=== PATIENT | female | born 1950 | race Caucasian/White ===

== ENCOUNTER 2021-10-04 18:50 | Inpatient (IN) | payer MEDICARE, OTHER ==
[~2021-10-04 18:50] MED LIST: Iopamidol-370 76% 500 ML 1 ML ONE
[2021-10-04 19:29] LABS: #Basophils 0.1 thou/uL (0.0-0.2); #Lymphocytes 2.2 thou/uL (1.20-3.40); #Monocytes 1.1 thou/uL (0.11-0.59); #Neutrophils 7.4 thou/uL (1.40-6.50); %Basophils 0.7 % (0.0-1.0); %Eosinophils 0.3 % (0.0-10.0); %Lymphocytes 20.4 % (21.0-51.0); %Monocytes 10.1 % (0.0-10.0); %Neutrophils 68.5 % (42.0-75.0); Hemoglobin 13.3 g/dL (12.0-16.0); Mean Corpuscular HGB CONC 32.7 g/dL (32.0-36.0); Mean Corpuscular Hemoglobin 30.1 pg (27.0-31.0); Mean Corpuscular Volume 92.2 fL (78.0-98.0); Mean Platelet Volume 8.9 fL (7.4-10.4); Platelet Count 288 thou/uL (130-400); RBC Distribution Width 12.8 % (11.5-14.5); White Blood Cell (WBC) Count 10.8 thou/uL (4.8-10.8)
[2021-10-04] MEDS ORDERED: Fentanyl 100 MCG/2 ML VIAL ONE (19:50)
[2021-10-04 20:10] LABS: Acetaminophen Less than 10.0 mcg/mL (10.0-30.0); Alcohol Less than 10 mg/dL (Less than 10); CK (CPK) 98 U/L (29-168); Salicylate Less than 8.0 mg/dL (15.0-30.0)
[2021-10-04] MEDS ORDERED: Dextrose 50% Abboject 50 ML SYRINGE SLOW IVP PRN (20:10)
[2021-10-04] MEDS ORDERED: Ondansetron ODT 4 MG TAB PO PRN (20:10)
[2021-10-04] MEDS ORDERED: Ondansetron PF 4 MG/2 ML Vial IVP PRN (20:10)
[2021-10-04] MEDS ORDERED: Dextrose 5% in Water 1,000 ML IV PRN (20:10)
[2021-10-04 20:22] LABS: Bilirubin Negative (Negative); Blood, Urine Negative (Negative); Clarity Clear (Clear); Glucose, Urine (Dipstick) Normal (Negative); Ketone, Urine Negative (Negative); Leukocyte Negative Leu/uL (Negative); Nitrite Negative (Negative); Protein, Urine (Dipstick) Negative (Neg-Trace); Specific Gravity, Urine 1.029 (1.002-1.036); Urobilinogen Normal mg/dL (Less than 2); pH, Urine 7.5 (5.0-9.0)
[2021-10-04 20:25] LABS: INR-International Normal Ratio 0.9; Prothrombin Time 12.7 sec (12.0-14.7)
[2021-10-04 20:26] LABS: PTT 22.4 sec (22.9-36.1)
[2021-10-04 20:30] LABS: Amphetamine Not Detected (NotDetected); Barbiturates Screen Not Detected (NotDetected); Benzodiazepine Screen Not Detected (NotDetected); Cocaine Metabolite Screen Not Detected (NotDetected); Methadone Not Detected (NotDetected); Methamphetamine Not Detected (NotDetected); Opiate Screen Not Detected (NotDetected); Oxycodone Screen Not Detected (NotDetected); Phencyclidine (PCP) Not Detected (NotDetected); THC/Cannabinoid Screen Not Detected (NotDetected); Tricyclic Screen Detected (NotDetected)
[2021-10-04 20:30] LABS: Albumin 3.9 g/dL (3.4-4.8)
[2021-10-04 20:31] LABS: Chloride 108 mmol/L (98-107); Potassium 3.7 mmol/L (3.5-5.1); Sodium 141 mmol/L (136-145)
[2021-10-04 20:32] LABS: Calcium 9.3 mg/dL (7.8-10.44)
[2021-10-04 20:33] LABS: Globulin 2.5 g/dL (2.4-3.5); Glucose 121 mg/dL (83-110); Protein, Total 6.4 g/dL (5.8-8.1)
[2021-10-04 20:34] LABS: Anion Gap 18 mmol/L (10-20); Bilirubin, Total 0.9 mg/dL (0.2-1.2); Carbon Dioxide 19 mmol/L (23-31)
[2021-10-04 20:35] LABS: Alkaline Phosphatase 78 U/L (40-110)
[2021-10-04 20:36] LABS: Calc. Creatinine Clearance 0 mL/min (70-130)
[2021-10-04 20:36] LABS: Actual Bicarbonate (HCO3v) 19 mEq/L (22-28); Analyzer IN Cardio ER; Base Excess -3.3 mEq/L (-2.0 to +3.0); Calcium, Ionized (venous) 1.14 mmol/L (1.16-1.32); Chloride (VBG) 106 mmol/L (98-106); Potassium (VBG) 3.44 mmol/L (3.70-5.30); Sodium 138.7 mmol/L (133-146); pH (venous) 7.48 (7.32-7.43)
[2021-10-04 20:37] LABS: BUN (Urea Nitrogen) 13 mg/dL (9.8-20.1)
[2021-10-04 20:38] LABS: ALT (SGPT) 21 U/L (8-55); AST (SGOT) 20 U/L (5-34)
[2021-10-04] MEDS: Labetalol HCl 100 MG/20 ML VIAL SLOW IVP PRN (21:51)
[2021-10-04] MEDS ORDERED: Thiamine HCl 200 MG/2 ML VIAL SLOW IVP SCH (22:00)
[2021-10-04 22:35] LABS: SARS-CoV-2 NAA Rapid Test Not Detected (NotDetected)
[2021-10-05] MEDS ORDERED: Acetaminophen 650 MG Suppository PR PRN (00:05)
[2021-10-05] MEDS ORDERED: traMADol HCl 50 MG TAB PO PRN (00:06)
[2021-10-05] MEDS: hydrALAZINE 20 MG/ML VIAL SLOW IVP PRN ×3 (00:09→16:19)
[2021-10-05] MEDS: Labetalol HCl 100 MG/20 ML VIAL SLOW IVP PRN ×6 (04:06→23:04)
[2021-10-05] MEDS ORDERED: Non-Formulary Item 1 EACH (Buspirone Hcl [Buspirone Hcl] 30 MG Tablet) PO PRN (08:33)
[2021-10-05] MEDS ORDERED: busPIRone HCl 10 MG TAB PO PRN ×2 (08:57→09:00)
[2021-10-05] MEDS ORDERED: Famotidine 20 MG TAB PO SCH (09:00)
[2021-10-05] MEDS ORDERED: Non-Formulary Item 1 EACH (Gabapentin [Neurontin] 600 MG Tablet) PO SCH (09:00)
[2021-10-05] MEDS ORDERED: Non-Formulary Item 1 EACH (Hydralazine Hcl [Hydralazine Hcl] 100 MG Tablet) PO SCH (09:00)
[2021-10-05 09:18] LABS: #Lymphocytes 1.5 thou/uL (1.20-3.40); #Monocytes 1.2 thou/uL (0.11-0.59); #Neutrophils 10.2 thou/uL (1.40-6.50); %Basophils 0.4 % (0.0-1.0); %Eosinophils 0.1 % (0.0-10.0); %Lymphocytes 11.3 % (21.0-51.0); %Monocytes 9.3 % (0.0-10.0); Hemoglobin 12.9 g/dL (12.0-16.0); Mean Corpuscular HGB CONC 32.8 g/dL (32.0-36.0); Mean Corpuscular Hemoglobin 29.8 pg (27.0-31.0); Mean Corpuscular Volume 90.9 fL (78.0-98.0); Mean Platelet Volume 8.8 fL (7.4-10.4); Platelet Count 271 thou/uL (130-400); RBC Distribution Width 12.7 % (11.5-14.5); Red Blood Cell (RBC) Count 4.32 mill/uL (4.20-5.40)
[2021-10-05] MEDS: Folic Acid 1 MG TAB PO SCH (09:29)
[2021-10-05] MEDS: Amlodipine 10 MG TAB PO SCH ×2 (09:29→15:55)
[2021-10-05] MEDS: Escitalopram Oxalate 10 mg Tablet PO SCH (09:29)
[2021-10-05] MEDS: Gabapentin 300 MG CAP PO SCH ×2 (09:30→20:56)
[2021-10-05] MEDS: hydrALAZINE 25 MG TAB PO SCH ×3 (09:32→20:55)
[2021-10-05 09:38] LABS: Anion Gap 16 mmol/L (10-20); BUN (Urea Nitrogen) 12 mg/dL (9.8-20.1); Calc. Creatinine Clearance 94 mL/min (70-130); Calcium 9.7 mg/dL (7.8-10.44); Carbon Dioxide 20 mmol/L (23-31); Chloride 108 mmol/L (98-107); Glucose 165 mg/dL (83-110); Magnesium 2.1 mg/dL (1.6-2.6); Potassium 3.2 mmol/L (3.5-5.1); Sodium 141 mmol/L (136-145)
[2021-10-05] MEDS ORDERED: Lorazepam 2 MG/ML VIAL SLOW IVP SCH (10:15)
[2021-10-05] MEDS: Lactated Ringer's 1,000 ML IV SCH ×2 (10:49→23:04)
[2021-10-05] MEDS ORDERED: Thiamine HCl 200 MG/2 ML VIAL SLOW IVP SCH (11:59)
[2021-10-05 12:00] LABS: Vitamin B12 398 pg/mL (211-911)
[2021-10-05 12:04] LABS: HIV (1/2) Antibody/Antigen Non-Reactive (NonReactive)
[2021-10-05] MEDS: Lorazepam 2 MG/ML VIAL SLOW IVP PRN ×3 (12:56→21:55)
[2021-10-05] MEDS ORDERED: Potassium Chloride 40 MEQ in Premix Bag 1 BAG IVPB SCH (18:15)
[2021-10-05] MEDS: Potassium Chloride 20 MEQ in Premix Bag 1 BAG IVPB SCH ×2 (18:28→20:55)
[2021-10-05] MEDS: Famotidine 20 MG TAB PO SCH (20:56)
[2021-10-05] MEDS: Atorvastatin Calcium 40 MG TAB PO SCH (20:56)
[2021-10-05] MEDS ORDERED: Oxazepam 10 MG CAP PO SCH (21:00)
[2021-10-05] MEDS ORDERED: Non-Formulary Item 1 EACH (Atorvastatin Calcium [Atorvastatin Calcium] 80 MG Tablet) PO SCH (21:00)
[2021-10-05] MEDS ORDERED: rOPINIRole HCl 1 MG TAB PO SCH (21:00)
[2021-10-06] MEDS: hydrALAZINE 20 MG/ML VIAL SLOW IVP PRN (02:32)
[2021-10-06 04:31] LABS: Anion Gap 14 mmol/L (10-20); BUN (Urea Nitrogen) 9 mg/dL (9.8-20.1); Calc. Creatinine Clearance 106 mL/min (70-130); Calcium 9.6 mg/dL (7.8-10.44); Carbon Dioxide 21 mmol/L (23-31); Chloride 108 mmol/L (98-107); Glucose 140 mg/dL (83-110); Potassium 3.5 mmol/L (3.5-5.1); Sodium 139 mmol/L (136-145)
[2021-10-06 08:25] LABS: Band 18 % (5-11); Hemoglobin 11.9 g/dL (12.0-16.0); Lymphocytes 11 % (21-51); MDiff Complete? YES; Mean Corpuscular HGB CONC 32.8 g/dL (32.0-36.0); Mean Corpuscular Hemoglobin 30.3 pg (27.0-31.0); Mean Corpuscular Volume 92.4 fL (78.0-98.0); Mean Platelet Volume 8.7 fL (7.4-10.4); Monocytes 11 % (0-10); Neutrophil 60 % (42-75); Platelet Count 223 thou/uL (130-400); Platelet Morphology Comment Appears Adequate; RBC Distribution Width 12.6 % (11.5-14.5); RBC Morphology Normal; Red Blood Cell (RBC) Count 3.91 mill/uL (4.20-5.40); White Blood Cell (WBC) Count 13.1 thou/uL (4.8-10.8)
[2021-10-06] MEDS ORDERED: Metoprolol Tartrate 25 MG TAB PO SCH (09:00)
[2021-10-06] MEDS: Amlodipine 10 MG TAB PO SCH (10:04)
[2021-10-06] MEDS: Folic Acid 1 MG TAB PO SCH (10:04)
[2021-10-06] MEDS: Escitalopram Oxalate 10 mg Tablet PO SCH (10:05)
[2021-10-06] MEDS: Famotidine 20 MG TAB PO SCH ×2 (10:05→20:12)
[2021-10-06] MEDS: Gabapentin 300 MG CAP PO SCH (10:06)
[2021-10-06] MEDS: hydrALAZINE 25 MG TAB PO SCH ×3 (10:06→20:12)
[2021-10-06] MEDS: Oxazepam 10 MG CAP PO SCH ×2 (10:07→20:12)
[2021-10-06] MEDS: Labetalol HCl 100 MG/20 ML VIAL SLOW IVP PRN ×3 (11:17→16:08)
[2021-10-06 11:54] LABS: Syphilis Antibody Nonreactive (Nonreactive); Syphilis Antibody Index 0.06 S/CO (<1.00 Non-Reactive)
[2021-10-06] MEDS: Lactated Ringer's 1,000 ML IV SCH (12:55)
[2021-10-06] MEDS ORDERED: Lorazepam 2 MG/ML VIAL SLOW IVP SCH (17:30)
[2021-10-06] MEDS: Atorvastatin Calcium 40 MG TAB PO SCH (20:12)
[2021-10-06] MEDS: Metoprolol Tartrate 25 MG TAB PO SCH (20:12)
[2021-10-06] MEDS ORDERED: Labetalol HCl 100 MG/20 ML VIAL SLOW IVP PRN (20:23)
[2021-10-06] MEDS ORDERED: hydrALAZINE 20 MG/ML VIAL SLOW IVP PRN (20:23)
[2021-10-07] MEDS: Lactated Ringer's 1,000 ML IV SCH (02:00)
[2021-10-07 04:06] LABS: #Basophils 0.1 thou/uL (0.0-0.2); #Eosinphils 0.1 thou/uL (0.0-0.7); #Lymphocytes 1.5 thou/uL (1.20-3.40); #Monocytes 1.2 thou/uL (0.11-0.59); #Neutrophils 9.3 thou/uL (1.40-6.50); %Basophils 0.5 % (0.0-1.0); %Eosinophils 1.1 % (0.0-10.0); %Lymphocytes 12.2 % (21.0-51.0); %Monocytes 9.7 % (0.0-10.0); %Neutrophils 76.4 % (42.0-75.0); Hemoglobin 11.9 g/dL (12.0-16.0); Mean Corpuscular HGB CONC 32.6 g/dL (32.0-36.0); Mean Platelet Volume 8.7 fL (7.4-10.4); Platelet Count 239 thou/uL (130-400); RBC Distribution Width 12.3 % (11.5-14.5); Red Blood Cell (RBC) Count 3.97 mill/uL (4.20-5.40); White Blood Cell (WBC) Count 12.1 thou/uL (4.8-10.8)
[2021-10-07 04:25] LABS: Anion Gap 13 mmol/L (10-20); BUN (Urea Nitrogen) 10 mg/dL (9.8-20.1); Calc. Creatinine Clearance 105 mL/min (70-130); Carbon Dioxide 23 mmol/L (23-31); Chloride 103 mmol/L (98-107); Glucose 163 mg/dL (83-110); Magnesium 1.9 mg/dL (1.6-2.6); Phosphorus 2.6 mg/dL (2.3-4.7); Potassium 3.2 mmol/L (3.5-5.1); Sodium 136 mmol/L (136-145)
[2021-10-07] MEDS ORDERED: Potassium Phosphate 30 MMOL in Sodium Chloride 0.9% 250 ML 250 ML IVPB SCH (07:45)
[2021-10-07] MEDS ORDERED: Magnesium 2 GM/50 ML(in water) 2 GM in Premix Bag 1 BAG IVPB SCH (07:45)
[2021-10-07] MEDS: hydrALAZINE 25 MG TAB PO SCH ×3 (08:31→19:19)
[2021-10-07] MEDS: Metoprolol Tartrate 25 MG TAB PO SCH ×2 (08:31→19:19)
[2021-10-07] MEDS: Amlodipine 10 MG TAB PO SCH (08:32)
[2021-10-07] MEDS: Escitalopram Oxalate 10 mg Tablet PO SCH (08:32)
[2021-10-07] MEDS: Oxazepam 10 MG CAP PO SCH ×2 (08:32→19:18)
[2021-10-07] MEDS: Folic Acid 1 MG TAB PO SCH (08:32)
[2021-10-07] MEDS: Famotidine 20 MG TAB PO SCH ×2 (08:32→19:19)
[2021-10-07] MEDS: cloNIDine 0.1 MG TAB PO SCH ×2 (17:49→23:42)
[2021-10-07] MEDS: Atorvastatin Calcium 40 MG TAB PO SCH (19:18)
[2021-10-08] MEDS: cloNIDine 0.1 MG TAB PO SCH ×4 (05:36→22:31)
[2021-10-08] MEDS ORDERED: Thiamine HCl 200 MG/2 ML VIAL SLOW IVP SCH (09:00)
[2021-10-08] MEDS: Thiamine 100 MG TAB PO SCH (09:22)
[2021-10-08] MEDS: hydrALAZINE 25 MG TAB PO SCH ×3 (09:22→21:19)
[2021-10-08] MEDS: Escitalopram Oxalate 10 mg Tablet PO SCH (09:22)
[2021-10-08] MEDS: Famotidine 20 MG TAB PO SCH ×2 (09:23→21:19)
[2021-10-08] MEDS: Oxazepam 10 MG CAP PO SCH ×3 (09:23→21:22)
[2021-10-08] MEDS: Folic Acid 1 MG TAB PO SCH (09:23)
[2021-10-08] MEDS: Amlodipine 10 MG TAB PO SCH (09:23)
[2021-10-08 11:26] VITALS: BMI 27.2
[2021-10-08] MEDS: Atorvastatin Calcium 40 MG TAB PO SCH (21:20)
[2021-10-09] MEDS: cloNIDine 0.1 MG TAB PO SCH ×4 (05:21→22:20)
[2021-10-09] MEDS: hydrALAZINE 25 MG TAB PO SCH ×3 (08:25→20:37)
[2021-10-09] MEDS: Amlodipine 10 MG TAB PO SCH (08:25)
[2021-10-09] MEDS: Folic Acid 1 MG TAB PO SCH (08:26)
[2021-10-09] MEDS: Oxazepam 10 MG CAP PO SCH ×3 (08:26→20:37)
[2021-10-09] MEDS: Thiamine 100 MG TAB PO SCH (08:26)
[2021-10-09] MEDS: Famotidine 20 MG TAB PO SCH ×2 (08:26→20:37)
[2021-10-09] MEDS: Escitalopram Oxalate 10 mg Tablet PO SCH (08:26)
[2021-10-09] MEDS: Acetaminophen 325 MG TAB PO PRN ×2 (13:08→20:36)
[2021-10-09] MEDS: Atorvastatin Calcium 40 MG TAB PO SCH (20:37)
[2021-10-10] MEDS: cloNIDine 0.1 MG TAB PO SCH ×3 (03:26→15:43)
[2021-10-10] MEDS: Famotidine 20 MG TAB PO SCH (10:11)
[2021-10-10] MEDS: hydrALAZINE 25 MG TAB PO SCH ×2 (10:11→15:42)
[2021-10-10] MEDS: Thiamine 100 MG TAB PO SCH (10:12)
[2021-10-10] MEDS: Folic Acid 1 MG TAB PO SCH (10:12)
[2021-10-10] MEDS: Oxazepam 10 MG CAP PO SCH ×2 (10:12→15:43)
[2021-10-10] MEDS: Amlodipine 10 MG TAB PO SCH (10:12)
[2021-10-10] MEDS: Escitalopram Oxalate 10 mg Tablet PO SCH (10:22)
[2021-10-10] MEDS: Acetaminophen 325 MG TAB PO PRN (10:22)
[2021-10-10 16:14] VITALS: BP 129/78; TEMP 98.4
== END 2021-10-10 17:00 | DRG 86 ==
LOC: ERS 18:50 → EEVIPCON 18:50 → CCU 20:15 → IMCU/EMU 10-06 18:36 → SURG A 10-09 17:12
PROVIDERS: ADMIT Surgery; ATTEND Surgery
DX: S06.6X0A Traumatic subarachnoid hemorrhage without loss of consciousness, initial encounter (principal); N39.0 Urinary tract infection, site not specified; F10.239 Alcohol dependence with withdrawal, unspecified; F05 Delirium due to known physiological condition; W18.30XA Fall on same level, unspecified, initial encounter; S06.5X0A Traumatic subdural hemorrhage without loss of consciousness, initial encounter; Z20.822 Contact with and (suspected) exposure to COVID-19; S02.2XXA Fracture of nasal bones, initial encounter for closed fracture; R40.2412 Glasgow coma scale score 13-15, at arrival to emergency department; E11.9 Type 2 diabetes mellitus without complications; D64.9 Anemia, unspecified; I25.10 Atherosclerotic heart disease of native coronary artery without angina pectoris; F32.A Depression, unspecified; I10 Essential (primary) hypertension; K21.9 Gastro-esophageal reflux disease without esophagitis; S00.12XA Contusion of left eyelid and periocular area, initial encounter; S00.11XA Contusion of right eyelid and periocular area, initial encounter; H11.32 Conjunctival hemorrhage, left eye; S00.81XA Abrasion of other part of head, initial encounter; G31.2 Degeneration of nervous system due to alcohol; E83.42 Hypomagnesemia; F03.90 Unspecified dementia, unspecified severity, without behavioral disturbance, psychotic disturbance, mood disturbance, and anxiety; E87.6 Hypokalemia; E83.39 Other disorders of phosphorus metabolism; S01.511A Laceration without foreign body of lip, initial encounter; G47.00 Insomnia, unspecified; E03.9 Hypothyroidism, unspecified; G43.909 Migraine, unspecified, not intractable, without status migrainosus; E66.9 Obesity, unspecified; Z87.01 Personal history of pneumonia (recurrent); Y92.009 Unspecified place in unspecified non-institutional (private) residence as the place of occurrence of the external cause; Z90.89 Acquired absence of other organs; Z79.899 Other long term (current) drug therapy; Z79.82 Long term (current) use of aspirin; Z79.890 Hormone replacement therapy
CPT/HCPCS: 36415; 36416; 70450; 70486; 71260; 72125; 74018; 74177; 80048; 80053; 80306; 80307; 81003; 82140; 82550; 82607; 82805; 83690; 83735; 84100; 84443; 84484; 85025; 85610; 85730; 86780; 87040; 87086; 87389; 93005; 95816; 95819; 95957; 96374; G0390; J0360; J2060; J3010; J3411; J3475; J3480; J7050; J7120; Q9967